=== PATIENT | female | born 1935 | race Hispanic/Latino ===

== ENCOUNTER 2018-01-12 13:22 | Emergency (ER) | payer OTHER, MEDICARE ==
[2018-01-12 14:40] LABS: BASOPHILS % (AUTO) 0.5 % (0.0-5.0); EOSINOPHILS % (AUTO) 1.5 % (0.0-8.0); HEMATOCRIT 37.2 % (36-48); LYMPHOCYTES % (AUTO) 18.1 % (21.0-51.0); MEAN CORPUSCULAR HEMOGLOBIN 31.6 pg (27.0-33.0); MEAN CORPUSCULAR HGB CONC 33.5 g/dL (32.0-36.0); MEAN CORPUSCULAR VOLUME 94.5 fL (79-99); MONOCYTES % (AUTO) 8.1 % (3.0-13.0); NEUTROPHILS % (AUTO) 71.8 % (40.0-77.0); NUCLEATED RED BLOOD CELLS 0.1 % (0.0-0.19); PLATELET COUNT (AUTO) 198 K/uL (130-400); RED BLOOD CELL COUNT(AUTO) 3.94 MIL/uL (4.00-5.50); RED CELL DISTRIBUTION WIDTH 12.9 % (11.0-15.5); WHITE BLOOD COUNT (AUTO) 6.6 K/uL (4.8-10.8)
[2018-01-12 14:51] LABS: APPEARANCE,URINE Clear (CLEAR); BILIRUBIN,URINE Negative (NEGATIVE); COLOR,URINE Yellow (YELLOW); GLUCOSE, URINE (UA) Negative (NEGATIVE); KETONES,URINE Negative (NEGATIVE); LEUKOCYTE ESTERASE ,URINE Negative (NEGATIVE); NITRATE,URINE Negative (NEGATIVE); OCCULT BLOOD,URINE Negative (NEGATIVE); PH,URINE 5.5 (5.0-8.0); PROTEIN,URINE Negative (NEGATIVE); UROBILINOGEN,URINE 0.2 mg/dL (0.2-1.0)
[2018-01-12 14:58] LABS: CARBON DIOXIDE 33 mmol/L (21-32); CHLORIDE 107 mmol/L (101-111); CREATININE 0.8 mg/dL (0.5-1.5); GLOMERULAR FILTR. RATE CALC 73 mL/min (>60); GLUCOSE,RANDOM 99 mg/dL (70-105); POTASSIUM 4.5 mmol/L (3.5-5.1); SODIUM SERUM 142 mmol/L (136-145); UREA NITROGEN, BLOOD 24 mg/dL (7-18)
[2018-01-12 15:01] LABS: AMPHET/METH SCREEN,URINE NEGATIVE (NEGATIVE); BARBITURATE SCREEN, URINE NEGATIVE (NEGATIVE); BENZODIAZEPINES SCREEN,URINE NEGATIVE (NEGATIVE); CANNABINOID SCREEN,URINE NEGATIVE (NEGATIVE); COCAINE SCREEN,URINE NEGATIVE (NEGATIVE); OPIATE SCREEN,URINE NEGATIVE (NEGATIVE); PHENCYCLIDINE SCREEN,URINE NEGATIVE (NEGATIVE)
[2018-01-12 15:02] LABS: ALANINE AMINOTRANSFERASE 12 U/L (12-78); ASPARTATE AMINOTRANSFERASE 13 U/L (10-37); BILIRUBIN,TOTAL 0.2 mg/dL (0.2-1.0); TOTAL PROTEIN, SERUM 6.3 g/dL (6.0-8.3)
[2018-01-12 15:03] LABS: ACETAMINOPHEN < 1 mcg/mL (10-30); ALCOHOL, BLOOD < 3 mg/dL (0-10); SALICYLATE < 2.8 mg/dL (2.8-20.0)
== END 2018-01-12 20:53 | disposition home or self-care (01) ==
LOC: EDH 13:22
DX: F91.8 Other conduct disorders (principal); F03.90 Unspecified dementia, unspecified severity, without behavioral disturbance, psychotic disturbance, mood disturbance, and anxiety; I10 Essential (primary) hypertension; Z90.49 Acquired absence of other specified parts of digestive tract; Z95.5 Presence of coronary angioplasty implant and graft
CPT/HCPCS: 36415; 80053; 80305; 81003; 85025; 93005; 99285; G0480 ×2; G0481

== ENCOUNTER 2018-02-16 18:14 | Inpatient (IN) | payer MEDICARE ==
[~2018-02-16] VITALS: Ht 162.6 cm; Wt 63.5 kg
[2018-02-16 18:34] LABS: BASOPHILS % (AUTO) 0.4 % (0.0-5.0); EOSINOPHILS % (AUTO) 0.7 % (0.0-8.0); HEMATOCRIT 39.6 % (36-48); LYMPHOCYTES % (AUTO) 28.7 % (21.0-51.0); MEAN CORPUSCULAR HGB CONC 33.1 g/dL (32.0-36.0); MEAN CORPUSCULAR VOLUME 93.5 fL (79-99); MONOCYTES % (AUTO) 9.2 % (3.0-13.0); NUCLEATED RED BLOOD CELLS 0.1 % (0.0-0.19); PLATELET COUNT (AUTO) 120 K/uL (130-400); RED BLOOD CELL COUNT(AUTO) 4.23 MIL/uL (4.00-5.50); RED CELL DISTRIBUTION WIDTH 13.5 % (11.0-15.5); WHITE BLOOD COUNT (AUTO) 4.3 K/uL (4.8-10.8)
[2018-02-16 18:43] LABS: CREATININE 0.6 mg/dL (0.5-1.5); POTASSIUM 4.6 mmol/L (3.5-5.1)
[2018-02-16 18:50] LABS: ALBUMIN 2.7 g/dL (3.5-5.0); BILIRUBIN,TOTAL 0.2 mg/dL (0.2-1.0); TOTAL PROTEIN, SERUM 6.2 g/dL (6.0-8.3)
[2018-02-16 19:00] LABS: CREATINE KINASE, TOTAL 38 U/L (21-232); MYOGLOBIN 31 ng/mL (10-92); TROPONIN I < 0.04 ng/mL (0.00-0.06)
[2018-02-16 19:02] LABS: APPEARANCE,URINE Clear (CLEAR); BILIRUBIN,URINE Negative (NEGATIVE); COLOR,URINE Yellow (YELLOW); GLUCOSE, URINE (UA) Negative (NEGATIVE); KETONES,URINE Negative (NEGATIVE); LEUKOCYTE ESTERASE ,URINE Negative (NEGATIVE); NITRATE,URINE Negative (NEGATIVE); OCCULT BLOOD,URINE Negative (NEGATIVE); PH,URINE 6.5 (5.0-8.0); PROTEIN,URINE Negative (NEGATIVE)
[2018-02-16] MEDS ORDERED: SODIUM CHLORIDE 0.9% 1000ML 1,000 ML IV ONE (20:11)
[2018-02-16] MEDS ORDERED: HYDROCODONE/ACETAMINOPHEN 5/325 MG TAB PO PRN (21:00)
[2018-02-16] MEDS ORDERED: ACETAMINOPHEN 325 MG TAB PO PRN (21:00)
[2018-02-16] MEDS ORDERED: MORPHINE SULFATE 2 MG/ML 1ML SYG IVP PRN (21:00)
[2018-02-16] MEDS: LACTATED RINGERS 1000ML 1,000 ML IV SCH (21:00)
[2018-02-16] MEDS: PHARMACY COMMUNICATION MISC SCH (21:24)
[2018-02-16] MEDS ORDERED: HYDRALAZINE HCL 20 MG/ML VIAL IV PRN (21:30)
[2018-02-16] MEDS ORDERED: POTASSIUM CHLORIDE 10% ELIXIR 20 MEQ/15 ML UDCUP PO PRN (21:30)
[2018-02-16] MEDS ORDERED: POTASSIUM CHLORIDE 20MEQ/100ML 100 ML IV PRN (21:30)
[2018-02-16] MEDS ORDERED: LIDOCAINE HCL-MPF 1% 2ML VIAL IJ PRN (21:30)
[2018-02-16] MEDS ORDERED: ZIPRASIDONE MESYLATE 20 MG/VIAL IM PRN (21:30)
[2018-02-16] MEDS ORDERED: ONDANSETRON HCL 4 MG/2 ML VIAL IVP PRN (21:30)
[2018-02-16] MEDS ORDERED: POTASSIUM CHLORIDE 20 MEQ ERTAB PO PRN (21:30)
[2018-02-16 22:21] LABS: ABG BASE EXCESS 1.7 mmol/L (-2.0-3.0); ABG HCO3 27.5 mmol/L (21.0-28.0); ABG OXYGEN SATURATION 99.7 % (95.0-99.0); ABG PCO2 47 mmHg (32-45)
[2018-02-16] MEDS ORDERED: LACTATED RINGERS 1000ML 1,000 ML IV ONE (23:02)
[2018-02-17 02:33] VITALS: BP 114/59
[2018-02-17] MEDS ORDERED: GLUCAGON 1MG KIT 1 MG ML IM PRN (04:00)
[2018-02-17] MEDS ORDERED: DEXTROSE 50%-WATER 50 ML DISP.SYRIN IV PRN (04:00)
[2018-02-17] MEDS ORDERED: METO50TA18 PO (05:37)
[2018-02-17] MEDS ORDERED: MELA10TA2 PO (05:37)
[2018-02-17] MEDS ORDERED: RIVA1PAT9 TD (05:37)
[2018-02-17] MEDS ORDERED: DIVA125C2 PO (05:37)
[2018-02-17] MEDS ORDERED: QUET50TA PO (05:37)
[2018-02-17] MEDS ORDERED: MEMA10TA11 PO (05:37)
[2018-02-17] MEDS ORDERED: ACET-2247 PO (05:37)
[2018-02-17] MEDS ORDERED: DOCU100C33 PO (05:37)
[2018-02-17] MEDS: INSULIN R PO SS1 SQ SCH ×4 (06:24→21:00)
[2018-02-17 07:45] VITALS: BP 140/85
[2018-02-17] MEDS ORDERED: ACETAMINOPHEN 325 MG TAB PO PRN (08:15)
[2018-02-17] MEDS ORDERED: DOCUSATE SODIUM 100 MG CAP PO PRN (08:15)
[2018-02-17] MEDS: PHARMACY COMMUNICATION MISC SCH ×2 (09:00→14:00)
[2018-02-17] MEDS: LACTATED RINGERS 1000ML 1,000 ML IV SCH ×2 (09:38→21:36)
[2018-02-17] MEDS: ENOXAPARIN SODIUM 40 MG/0.4 ML SYRINGE SQ SCH (09:38)
[2018-02-17 11:03] VITALS: BP 123/63
[2018-02-17] MEDS: METOPROLOL TARTRATE 50 MG TAB PO SCH ×2 (14:19→21:08)
[2018-02-17] MEDS: MEMANTINE HCL 5 MG TABLET PO SCH ×2 (14:20→21:08)
[2018-02-17 16:29] VITALS: BP 140/79
[2018-02-17 20:00] VITALS: BP 141/88
[2018-02-17] MEDS: Melatonin 10 MG PO SCH (21:00)
[2018-02-17 23:59] VITALS: BP 140/81
[2018-02-18 04:02] VITALS: BP 162/92
[2018-02-18] MEDS: INSULIN R PO SS1 SQ SCH ×4 (06:36→21:00)
[2018-02-18 07:50] VITALS: BP 157/98
[2018-02-18] MEDS: ENOXAPARIN SODIUM 40 MG/0.4 ML SYRINGE SQ SCH (10:25)
[2018-02-18 11:27] VITALS: BP 122/67
[2018-02-18] MEDS: METOPROLOL TARTRATE 50 MG TAB PO SCH ×2 (12:28→21:08)
[2018-02-18] MEDS: MEMANTINE HCL 5 MG TABLET PO SCH (12:28)
[2018-02-18 16:28] VITALS: BP 134/71
[2018-02-18 19:59] VITALS: BP 135/84
[2018-02-18] MEDS: Melatonin 10 MG PO SCH (21:00)
[2018-02-18] MEDS: DIVALPROEX SODIUM 250 MG TABLET.DR PO SCH ×2 (21:00→21:09)
[2018-02-18] MEDS: LACTATED RINGERS 1000ML 1,000 ML IV SCH (21:23)
[2018-02-18] MEDS: VALPROATE SOD 250 MG/5 ML (PO) PO SCH (22:30)
[2018-02-18] MEDS ORDERED: VALPROATE SOD 250 MG/5 ML (PO) PO SCH (22:30)
[2018-02-18] MEDS ORDERED: VALPROATE SOD 250 MG/5 ML (PO) ONE (22:55)
[2018-02-18 23:29] VITALS: BP 158/73
[2018-02-19] MEDS ORDERED: MORPHINE SULFATE 2 MG/ML 1ML SYG ONE (00:35)
[2018-02-19 03:35] LABS: HEMATOCRIT 35.2 % (36-48); MEAN CORPUSCULAR HEMOGLOBIN 32.1 pg (27.0-33.0); MEAN CORPUSCULAR VOLUME 91.6 fL (79-99); PLATELET COUNT (AUTO) 157 K/uL (130-400); RED BLOOD CELL COUNT(AUTO) 3.84 MIL/uL (4.00-5.50); RED CELL DISTRIBUTION WIDTH 13.3 % (11.0-15.5); WHITE BLOOD COUNT (AUTO) 5.8 K/uL (4.8-10.8)
[2018-02-19 03:44] LABS: INR 1.03 (0.85-1.15); PARTIAL THROMBOPLASTIN TIME 27.7 SEC (26.3-35.5); PROTHROMBIN TIME 10.8 SEC (9.6-11.6)
[2018-02-19 03:46] VITALS: BP 169/83
[2018-02-19 03:54] LABS: ALBUMIN 2.7 g/dL (3.5-5.0); BILIRUBIN,TOTAL 0.3 mg/dL (0.2-1.0); CREATININE 0.7 mg/dL (0.5-1.5); MAGNESIUM 1.8 mg/dL (1.80-2.40); PHOSPHORUS 3.6 mg/dL (2.5-4.9); POTASSIUM 3.7 mmol/L (3.5-5.1); THYROID STIMULATING HORMONE 8.46 uIU/mL (0.36-3.74); TOTAL PROTEIN, SERUM 5.8 g/dL (6.0-8.3)
[2018-02-19] MEDS: INSULIN R PO SS1 SQ SCH ×2 (07:21→11:30)
[2018-02-19 07:47] VITALS: BP 133/77
[2018-02-19] MEDS: VALPROATE SOD 250 MG/5 ML (PO) PO SCH (08:27)
[2018-02-19] MEDS: ENOXAPARIN SODIUM 40 MG/0.4 ML SYRINGE SQ SCH (08:27)
[2018-02-19] MEDS: METOPROLOL TARTRATE 50 MG TAB PO SCH (08:27)
[2018-02-19] MEDS: LACTATED RINGERS 1000ML 1,000 ML IV SCH (11:00)
[2018-02-19 11:15] VITALS: BP 125/77
[2018-02-19] MEDS ORDERED: MELA10TA2 PO (14:54)
[2018-02-19] MEDS ORDERED: METO50TA18 PO (14:54)
[2018-02-19] MEDS ORDERED: QUET50TA PO (14:55)
[2018-02-19] MEDS ORDERED: QUETIAPINE FUMARATE 25 MG TAB PO SCH (21:00)
== END 2018-02-19 15:25 | DRG 871 ==
LOC: EDH 18:14 → OBSVTOIN 19:47 → EDHIP 19:47 → 3BH 21:41 → EDHIP 23:20 → 2DH 02-17 00:35
PROVIDERS: ADMIT Internal Medicine Critical Care Medicine; ATTEND Internal Medicine Critical Care Medicine
DX: A41.9 Sepsis, unspecified organism (principal); G92 Toxic encephalopathy; F02.80 Dementia in other diseases classified elsewhere, unspecified severity, without behavioral disturbance, psychotic disturbance, mood disturbance, and anxiety; G30.9 Alzheimer's disease, unspecified; I10 Essential (primary) hypertension; E78.5 Hyperlipidemia, unspecified
CPT/HCPCS: 36415; 36600; 70450; 71045; 80053; 80164; 81003; 82140; 82550; 82803; 82948; 83605; 83735; 83874; 84100; 84443; 84484; 85025; 85027; 85610; 85730; 87040; 92610; 93005; 94760; 99291; A4606; J1650; J7030; J7120

== ENCOUNTER 2018-05-10 09:18 | Observation (INO) | payer MEDICARE ==
[~2018-05-10] VITALS: Ht 162.6 cm; Wt 60.6 kg
[~2018-05-10 09:18] MED LIST: MELA10TA2 PO; METO50TA18 PO; QUET50TA PO
[2018-05-10 10:02] LABS: BASOPHILS % (AUTO) 0.5 % (0.0-5.0); EOSINOPHILS % (AUTO) 0.7 % (0.0-8.0); HEMATOCRIT 38.9 % (36-48); LYMPHOCYTES % (AUTO) 24.2 % (21.0-51.0); MEAN CORPUSCULAR HEMOGLOBIN 30.5 pg (27.0-33.0); MEAN CORPUSCULAR HGB CONC 32.6 g/dL (32.0-36.0); MEAN CORPUSCULAR VOLUME 93.4 fL (79-99); MONOCYTES % (AUTO) 7.8 % (3.0-13.0); NEUTROPHILS % (AUTO) 66.8 % (40.0-77.0); NUCLEATED RED BLOOD CELLS 0.2 % (0.0-0.19); PLATELET COUNT (AUTO) 259 K/uL (130-400); RED BLOOD CELL COUNT(AUTO) 4.16 MIL/uL (4.00-5.50); RED CELL DISTRIBUTION WIDTH 13.5 % (11.0-15.5); WHITE BLOOD COUNT (AUTO) 7.6 K/uL (4.8-10.8)
[2018-05-10 10:16] LABS: ALBUMIN 2.9 g/dL (3.5-5.0); BILIRUBIN,TOTAL 0.3 mg/dL (0.2-1.0); CREATININE 0.8 mg/dL (0.5-1.5); POTASSIUM 3.8 mmol/L (3.5-5.1); TOTAL PROTEIN, SERUM 6.5 g/dL (6.0-8.3)
[2018-05-10 10:43] LABS: APPEARANCE,URINE Clear (CLEAR); BILIRUBIN,URINE Negative (NEGATIVE); COLOR,URINE Yellow (YELLOW); GLUCOSE, URINE (UA) Negative (NEGATIVE); KETONES,URINE Trace mg/dL (NEGATIVE); LEUKOCYTE ESTERASE ,URINE Negative (NEGATIVE); NITRATE,URINE Negative (NEGATIVE); OCCULT BLOOD,URINE Negative (NEGATIVE); PROTEIN,URINE Trace (NEGATIVE)
[2018-05-10 10:44] LABS: BACTERIA,URINE Rare /HPF (None Seen); RBC,URINE 0-1 /HPF (0-1); SQUAMOUS EPITHELIAL CELL,UR Rare /HPF (0-2); WBC,URINE 0-1 /HPF (0-1)
[2018-05-10] MEDS ORDERED: SODIUM CHLORIDE 0.9% 500ML 500 ML IV ONE (11:22)
[2018-05-10] MEDS ORDERED: QUET25TA PO (13:59)
[2018-05-10 14:00] VITALS: BP 104/53
[2018-05-10] MEDS ORDERED: DEXTROSE 5%-WATER 1,000 ML IV ONE (14:02)
[2018-05-10] MEDS: DEXTROSE 5%-WATER 1,000 ML IV SCH ×2 (15:30→21:58)
[2018-05-10 16:00] VITALS: BP 114/57
[2018-05-10] MEDS: METOPROLOL TARTRATE 50 MG TAB PO SCH (16:32)
[2018-05-10 21:35] VITALS: BP 128/65
[2018-05-10] MEDS: QUETIAPINE FUMARATE 25 MG TAB PO SCH (21:58)
[2018-05-11] VITALS (7 sets, daily range): BP systolic 90–139; BP diastolic 37–96
[2018-05-11 03:40] LABS: BASOPHILS % (AUTO) 0.5 % (0.0-5.0); EOSINOPHILS % (AUTO) 0.9 % (0.0-8.0); HEMATOCRIT 33.8 % (36-48); LYMPHOCYTES % (AUTO) 28.7 % (21.0-51.0); MEAN CORPUSCULAR HGB CONC 33.7 g/dL (32.0-36.0); MEAN CORPUSCULAR VOLUME 92.1 fL (79-99); MONOCYTES % (AUTO) 9.6 % (3.0-13.0); NEUTROPHILS % (AUTO) 60.3 % (40.0-77.0); PLATELET COUNT (AUTO) 221 K/uL (130-400); RED BLOOD CELL COUNT(AUTO) 3.67 MIL/uL (4.00-5.50); RED CELL DISTRIBUTION WIDTH 13.3 % (11.0-15.5); WHITE BLOOD COUNT (AUTO) 6.3 K/uL (4.8-10.8)
[2018-05-11 03:48] LABS: CREATININE 0.7 mg/dL (0.5-1.5); POTASSIUM 3.8 mmol/L (3.5-5.1)
[2018-05-11] MEDS: DEXTROSE 5%-WATER 1,000 ML IV SCH (05:46)
[2018-05-11] MEDS: METOPROLOL TARTRATE 50 MG TAB PO SCH ×2 (09:00→21:00)
[2018-05-11] MEDS ORDERED: LACTATED RINGERS 1000ML 1,000 ML IV SCH (12:45)
[2018-05-11] MEDS ORDERED: Melatonin 10 MG PO SCH (21:00)
[2018-05-11] MEDS: QUETIAPINE FUMARATE 25 MG TAB PO SCH (21:31)
[2018-05-12 03:48] VITALS: BP 116/60
[2018-05-12 03:52] LABS: HEMATOCRIT 35.5 % (36-48); MEAN CORPUSCULAR HEMOGLOBIN 30.6 pg (27.0-33.0); MEAN CORPUSCULAR HGB CONC 33.5 g/dL (32.0-36.0); MEAN CORPUSCULAR VOLUME 91.5 fL (79-99); PLATELET COUNT (AUTO) 223 K/uL (130-400); RED BLOOD CELL COUNT(AUTO) 3.88 MIL/uL (4.00-5.50); RED CELL DISTRIBUTION WIDTH 13.3 % (11.0-15.5); WHITE BLOOD COUNT (AUTO) 6.3 K/uL (4.8-10.8)
[2018-05-12 03:56] LABS: CREATININE 0.6 mg/dL (0.5-1.5); MAGNESIUM 1.9 mg/dL (1.80-2.40); POTASSIUM 3.9 mmol/L (3.5-5.1)
[2018-05-12 07:00] VITALS: BP 121/73
[2018-05-12 11:00] VITALS: BP 124/72
[2018-05-12 16:00] VITALS: BP 135/72
== END 2018-05-12 17:05 | disposition home or self-care (01) ==
LOC: EDH 09:18 → EDHIP 12:10 → 2AH 14:16
PROVIDERS: ADMIT Internal Medicine Critical Care Medicine; ATTEND Internal Medicine Critical Care Medicine
DX: F02.80 Dementia in other diseases classified elsewhere, unspecified severity, without behavioral disturbance, psychotic disturbance, mood disturbance, and anxiety (principal); G30.9 Alzheimer's disease, unspecified; E86.0 Dehydration; E86.1 Hypovolemia; E87.0 Hyperosmolality and hypernatremia; I10 Essential (primary) hypertension; E78.5 Hyperlipidemia, unspecified; I25.10 Atherosclerotic heart disease of native coronary artery without angina pectoris; G93.41 Metabolic encephalopathy; F32.9 Major depressive disorder, single episode, unspecified; F60.7 Dependent personality disorder
CPT/HCPCS: 36415 ×3; 70450; 80048 ×2; 80053; 81001; 83735; 84484; 85025 ×2; 85027; 92610; 93005; 96360; 96361 ×2; 97039; 97161; 99284; A4600; G0378 ×53; G8979; G8981; G8982; G8983; J7040; J7070 ×3; J7120

== ENCOUNTER 2019-01-06 16:44 | Observation (INO) | payer MEDICARE ==
[~2019-01-06] VITALS: Ht 162.6 cm; Wt 58.5 kg
[~2019-01-06 16:44] MED LIST changes: +QUET25TA PO; -QUET50TA PO
[2019-01-06] MEDS ORDERED: ONDANSETRON HCL 4 MG/2 ML VIAL ONE (17:32)
[2019-01-06] MEDS ORDERED: SODIUM CHLORIDE 0.9% 1000ML 1,000 ML IV ONE ×2 (17:33→21:03)
[2019-01-06 18:00] LABS: BASOPHILS % (AUTO) 0.4 % (0.0-5.0); EOSINOPHILS % (AUTO) 0.1 % (0.0-8.0); HEMATOCRIT 38.5 % (36-48); LYMPHOCYTES % (AUTO) 13.5 % (21.0-51.0); MEAN CORPUSCULAR HEMOGLOBIN 30.8 pg (27.0-33.0); MEAN CORPUSCULAR HGB CONC 34.1 g/dL (32.0-36.0); MEAN CORPUSCULAR VOLUME 90.5 fL (79-99); MONOCYTES % (AUTO) 13.7 % (3.0-13.0); NEUTROPHILS % (AUTO) 72.3 % (40.0-77.0); NUCLEATED RED BLOOD CELLS 0.1 % (0.0-0.19); PLATELET COUNT (AUTO) 230 K/uL (130-400); RED BLOOD CELL COUNT(AUTO) 4.26 MIL/uL (4.00-5.50); RED CELL DISTRIBUTION WIDTH 13.9 % (11.0-15.5); WHITE BLOOD COUNT (AUTO) 5.5 K/uL (4.8-10.8)
[2019-01-06 18:04] LABS: POTASSIUM 3.9 mmol/L (3.5-5.1)
[2019-01-06 18:08] LABS: ALBUMIN 3.5 g/dL (3.5-5.0); BILIRUBIN,TOTAL 0.7 mg/dL (0.2-1.0); TOTAL PROTEIN, SERUM 7.4 g/dL (6.0-8.3)
[2019-01-06] MEDS ORDERED: BISACODYL 10 MG SUPP.RECT RC ONE (19:17)
[2019-01-06] MEDS ORDERED: LIDOCAINE HCL 2% VISCOUS 15 ML UDCUP ONE (19:30)
[2019-01-06] MEDS ORDERED: LIDOCAINE HCL 2% JELLY 5 ML ONE (19:30)
[2019-01-06] MEDS ORDERED: LORAZEPAM 2 MG/ML 1 ML VIAL ONE (19:50)
[2019-01-06] MEDS: SODIUM CHLORIDE 0.9% 1000ML 1,000 ML IV SCH (20:30)
[2019-01-06] MEDS ORDERED: METOCLOPRAMIDE 10 MG/2 ML VIAL ONE (20:59)
[2019-01-06] MEDS: ZOSYN 3.375GM+NS 50ML 50 ML IV SCH (21:00)
[2019-01-06] MEDS: METOCLOPRAMIDE 10 MG/2 ML VIAL IVP SCH (21:00)
[2019-01-06] MEDS ORDERED: ZOSYN 3.375GM+NS 50ML 50 ML IV ONE (21:00)
[2019-01-07 01:40] VITALS: BP 112/68
[2019-01-07] MEDS ORDERED: QUET25TA74 PO (03:53)
[2019-01-07 04:00] VITALS: BP 124/69
[2019-01-07] MEDS: METOCLOPRAMIDE 10 MG/2 ML VIAL IVP SCH ×3 (04:51→20:51)
[2019-01-07] MEDS: ZOSYN 3.375GM+NS 50ML 50 ML IV SCH ×3 (04:52→20:51)
[2019-01-07 07:58] VITALS: BP 104/66
[2019-01-07] MEDS: SODIUM CHLORIDE 0.9% 1000ML 1,000 ML IV SCH ×2 (10:13→23:17)
--- NOTE | 2019-01-07 11:00 | NUR ---
CONCERN PT DAUGHTER CONCERNED THAT PT'S NGT SUCTION IS NOT DRAINING MUCH YESTERDAY, ONLY A LITTLE BIT OF PALE COLOR FLUID (200CC) IN COLLECTION CONTAINER. AUSCULTATED BOWEL SOUNDS, HYPOACTIVE IN ALL QUADRANTS, PT IN NO APPARENT DISTRESS, BELLY SOFT TO TOUCH. INSTRUCTED NURSE TO CHANGE SUCTION CONTAINER, NOTED IT IS ON LOW INTERMITTENT SUCTION. PTS DAUGHTER VERBALIZED UNDERSTANDING.
[2019-01-07 12:00] VITALS: BP 105/59
[2019-01-07] MEDS ORDERED: LACTULOSE 20 GM/30 ML UDCUP PO PRN (13:15)
--- NOTE | 2019-01-07 13:41 | NUR ---
DCP CM met with pt and family discussed dc plans. Pt is semi-independent to assists with ADL's, lives at home with spouse, daughter (ILDEFONSO)Hodan Morales [phone] lives close by. Pt has a walker, wheelchair, home health that visits once a week, provider 51hrs/wk, pt also has additionarl respite care if needed more provider hours. Denies any other services/equipments. Feels safe to go back home, spouse and daughter able to assist with transportation and needs. Declined placement prefers to go back home. DC plan to home once stable. CM to cont to follow up. Addendum: 01/07/19 at 1343 by MASSIEL BRADFORD LVN CM Amended: Links added.
--- NOTE | 2019-01-07 15:53 | NUR ---
RD NOTIFICATION PRIMARY DIAGNOSIS: BOWEL OBSTRUCTION. HX: HTN, HYPERCHOLESTEROLEMIA, DEMENTIA. BMI IS 22.1; CLASSIFIED NORMAL. CURRENT DIET: NPO. MEDS: PIPERACILLIN, REGLAN. LABS: BUN 34, GFR 57, RG 146, ALT 6, LIPASE 56, ALB 3.5. PT HAS BEEN NPO FOR TWO DAYS NOW. APPETITE IS GOOD AT HOME AND PT EATS WELL, PER DAUGHTER. FAMILY STATED PT IS ALWAYS CONSTIPATED AND WANTS NUTRITION THERAPY EDUCATION TO TREAT CONSTIPATION. RD RECOMMENDS TO CONTINUE CURRENT DIET AND ADVANCE TOLERATED WHEN MEDICALLY FEASIBLE. ADVANCE TOLERATED TO CLEAR LIQUIDS, FULL LIQUIDS, AND LASTLY, HIGH FIBER/ WITH MECHANICAL SOFT TEXTURES. RD PROVIDED FAMILY HIGH FIBER FOODS NUTRITION EDUCATION. FAMILY WAS EAGER TO LEARN AND ASKED MANY QUESTIONS. RD ANSWERED. RD WILL CONTINUE TO MONITOR AND WILL FOLLOW UP NEEDED. PLEASE NOTIFY RD IF ANY OTHER NUTRITIONAL CONCERNS ARISE. THANK YOU. Addendum: 01/07/19 at [address] RD Amended: Links added.
--- NOTE | 2019-01-07 15:54 | NUR ---
DIET EDUCATION RD PROVIDED FAMILY HIGH FIBER FOODS NUTRITION EDUCATION. FAMILY WAS EAGER TO LEARN AND ASKED MANY QUESTIONS. RD ANSWERED. RD WILL CONTINUE TO MONITOR AND WILL FOLLOW UP NEEDED. PLEASE NOTIFY RD IF ANY OTHER NUTRITIONAL CONCERNS ARISE. THANK YOU. Addendum: 01/07/19 at [address] RD Amended: Links added.
[2019-01-07 16:00] VITALS: BP 107/83
[2019-01-07 20:43] VITALS: BP 113/66
--- NOTE | 2019-01-07 20:50 | NUR ---
MEDS SHIFT ASSESSMENT DONE, PLEASE REFER TO CHART. DUE MEDS ADMINISTERED, TOLERATED WELL. KEPT RESTED AND COMFORTABLE IN BED. FAMILY AT BEDSIDE. WILL MONITOR PT. Addendum: 01/07/19 at 2218 by IVY TRAN RN RN Amended: Links added.
[2019-01-07] MEDS ORDERED: QUETIAPINE FUMARATE 25 MG TAB PO SCH (21:00)
[2019-01-07] MEDS ORDERED: **HM** MELATONIN 10MG PO SCH (21:00)
[2019-01-08 00:17] VITALS: BP 96/50
--- NOTE | 2019-01-08 01:45 | NUR ---
PIV PT'S PIV INFILTRATED. DISCONTINUED SITE WITH CATHETER INTACT. RE-INSERTED PIV TO LEFT HAND AND SECURED. CONTINUED IVF AND IV ANTIBIOTICS. KEPT RESTED AND COMFORTABLE. FAMILY AT BEDSIDE. WILL MONITOR PT. Addendum: 01/08/19 at 0223 by IVY TRAN RN RN Amended: Links added.
[2019-01-08 04:17] VITALS: BP 101/62
[2019-01-08] MEDS: ZOSYN 3.375GM+NS 50ML 50 ML IV SCH ×2 (04:23→13:15)
[2019-01-08] MEDS: METOCLOPRAMIDE 10 MG/2 ML VIAL IVP SCH ×2 (04:23→13:16)
[2019-01-08 05:29] LABS: CREATININE 0.8 mg/dL (0.5-1.5)
--- NOTE | 2019-01-08 05:51 | NUR ---
PAGE LAB REPORTED KCL RESULTS=3. PAGED [employer] CHAIR KALEB, RETURNER FOR [employer], VIA ANSWERING SERVICE. AWAITING CALL BACK.
[2019-01-08 09:00] VITALS: BP 120/74
[2019-01-08] MEDS: SODIUM CHLORIDE 0.9% 1000ML 1,000 ML IV SCH (11:47)
[2019-01-08 12:00] VITALS: BP 135/85
[2019-01-08] MEDS ORDERED: POTASSIUM CHLORIDE 20 MEQ ERTAB PO SCH (13:15)
--- NOTE | 2019-01-08 16:30 | NUR ---
DISCHARGE INSTRUCTIONS GIVEN. ALL QUESTIONS ANSWERED. INSTRUCTED TO FOLLOW UP WITH PCP ON THURSDAY AND CONTINUE SAME MEDICATIONS INDICATED. ENCOURAGED TO DRINK PLENTY OF WATER. IV DISCONTINUED WITH INNER CANNULA INTACT...
== END 2019-01-08 16:43 | disposition home or self-care (01) ==
LOC: EDH 16:44 → EDHIP 19:01 → 3DH 23:50
PROVIDERS: ADMIT Internal Medicine Critical Care Medicine; ATTEND Internal Medicine Critical Care Medicine
DX: K56.609 Unspecified intestinal obstruction, unspecified as to partial versus complete obstruction (principal); K56.41 Fecal impaction; R19.7 Diarrhea, unspecified; E78.5 Hyperlipidemia, unspecified; I10 Essential (primary) hypertension; G30.9 Alzheimer's disease, unspecified; F02.80 Dementia in other diseases classified elsewhere, unspecified severity, without behavioral disturbance, psychotic disturbance, mood disturbance, and anxiety; Z79.899 Other long term (current) drug therapy
CPT/HCPCS: 36415 ×3; 74176; 80048; 80053; 83690; 84443; 84484; 85025; 93005; 96361 ×3; 96365; 96366 ×2; 96375; 96376 ×2; 99291; G0378 ×46; J2060; J2405; J2543 ×6; J2765 ×6; J7030 ×4

== ENCOUNTER 2019-06-13 18:11 | Emergency (ER) | payer MEDICARE ==
[~2019-06-13 18:11] MED LIST changes: -METO50TA18 PO; +POLY17PO4 PO; -QUET25TA PO; +QUET25TA74 PO
[2019-06-13] MEDS ORDERED: SODIUM CHLORIDE 0.9% 1000ML 1,000 ML IV ONE (19:14)
[2019-06-13 19:19] LABS: BASOPHILS % (AUTO) 0.3 % (0.0-5.0); CREATININE 1.1 mg/dL (0.5-1.5); EOSINOPHILS % (AUTO) 0.1 % (0.0-8.0); LYMPHOCYTES % (AUTO) 5.4 % (21.0-51.0); MEAN CORPUSCULAR HEMOGLOBIN 30.3 pg (27.0-33.0); MEAN CORPUSCULAR HGB CONC 32.4 g/dL (32.0-36.0); MEAN CORPUSCULAR VOLUME 93.5 fL (79-99); MONOCYTES % (AUTO) 7.6 % (3.0-13.0); NEUTROPHILS % (AUTO) 86.3 % (40.0-77.0); PLATELET COUNT (AUTO) 288 K/uL (130-400); POTASSIUM 3.8 mmol/L (3.5-5.1); RED BLOOD CELL COUNT(AUTO) 4.49 MIL/uL (4.00-5.50); RED CELL DISTRIBUTION WIDTH 12.9 % (11.0-15.5); WHITE BLOOD COUNT (AUTO) 7.5 K/uL (4.8-10.8)
[2019-06-13 19:21] LABS: INR 1.03 (0.85-1.15); PARTIAL THROMBOPLASTIN TIME 24.6 SEC (26.3-35.5); PROTHROMBIN TIME 10.8 SEC (9.6-11.6)
[2019-06-13 19:23] LABS: ALBUMIN 3.4 g/dL (3.5-5.0); TOTAL PROTEIN, SERUM 7.5 g/dL (6.0-8.3)
[2019-06-13 19:42] LABS: BAND NEUTROPHILS % (MANUAL) 37 % (0-2); LYMPHOCYTES % (MANUAL) 3 % (22-44); MAN.DIFF COMMENT-IMPRESSION MANUAL DIFFERENTIAL; MONOCYTES % (MANUAL) 12 % (2-9); SEGMENTED NEUTROPHILS % 48 % (40-70)
[2019-06-13 19:43] LABS: PLATELET MORPHOLOGY COMMENT ADEQUATE
[2019-06-13 19:53] LABS: B-TYPE NATRIURETIC PEPTIDE 67 pg/mL (0-100)
[2019-06-13] MEDS ORDERED: ZOSYN 3.375GM+NS 50ML 50 ML IV ONE (20:34)
[2019-06-13] MEDS ORDERED: BISACODYL 10 MG SUPP.RECT RC ONE (23:15)
[2019-06-13] MEDS ORDERED: LIDOCAINE HCL 2% JELLY 5 ML ONE (23:17)
[2019-06-14 00:33] LABS: APPEARANCE,URINE Cloudy (CLEAR); BILIRUBIN,URINE Negative (NEGATIVE); COLOR,URINE Dark Yellow (YELLOW); GLUCOSE, URINE (UA) Negative (NEGATIVE); KETONES,URINE Trace mg/dL (NEGATIVE); LEUKOCYTE ESTERASE ,URINE Trace (NEGATIVE); NITRATE,URINE Negative (NEGATIVE); OCCULT BLOOD,URINE Negative (NEGATIVE); PROTEIN,URINE Negative (NEGATIVE)
[2019-06-14 00:57] LABS: BACTERIA,URINE None Seen /HPF (None Seen); RBC,URINE None Seen /HPF (0-1); WBC,URINE 0-1 /HPF (0-1)
[2019-06-14 00:58] LABS: AMORPHOUS SEDIMENT,UR Few /LPF (None Seen); SQUAMOUS EPITHELIAL CELL,UR Rare /HPF (0-2)
[2019-06-14] MEDS ORDERED: SODIUM CHLORIDE 0.9% 1000ML 1,000 ML IV ONE (01:35)
[2019-06-14] MEDS ORDERED: SODIUM CHLORIDE 0.9% 500ML 500 ML IV ONE (01:35)
== END 2019-06-14 03:48 | disposition short-term general hospital (02) ==
LOC: EDH 18:11
DX: K52.9 Noninfective gastroenteritis and colitis, unspecified (principal); K59.00 Constipation, unspecified; R11.2 Nausea with vomiting, unspecified; I10 Essential (primary) hypertension; G30.9 Alzheimer's disease, unspecified; F02.80 Dementia in other diseases classified elsewhere, unspecified severity, without behavioral disturbance, psychotic disturbance, mood disturbance, and anxiety
CPT/HCPCS: 36415; 74176; 80053; 81001; 82550; 83605 ×2; 83690; 83880; 84484; 85025; 85610; 85730; 87040 ×2; 87077; 87186; 87804 ×2; 93005; 96361 ×2; 96365; 99285; J2543; J7030 ×2; J7040

== ENCOUNTER 2024-02-18 16:05 | Emergency (ER) | payer MEDICARE ==
[~2024-02-18] VITALS: Ht 162.6 cm; Wt 69.9 kg
[~2024-02-18 16:05] MED LIST changes: +LACT PO; +LACT1CAP79 PO; +LEVO250T75 PO; +LEVO50TA11 PEG; +MELA10TA2 PEG; -MELA10TA2 PO; +METR-172 PO; +POLY17PO4 PEG; -POLY17PO4 PO; +QUET25TA36 PEG; -QUET25TA74 PO
[2024-02-18 21:00] VITALS: BP 142/69; PULSE 86; RESP 18; TEMP 98; O2SAT 95
== END 2024-02-18 21:05 | disposition left against medical advice (07) ==
LOC: EDH 16:05
DX: R06.00 Dyspnea, unspecified (principal); G30.9 Alzheimer's disease, unspecified; F02.80 Dementia in other diseases classified elsewhere, unspecified severity, without behavioral disturbance, psychotic disturbance, mood disturbance, and anxiety; Z79.899 Other long term (current) drug therapy
CPT/HCPCS: 71045; 93005